=== PATIENT | female | born 1990 | race Caucasian/White ===

== ENCOUNTER 2019-05-21 12:19 | Emergency (ER) | payer MEDICAID, OTHER ==
[~2019-05-21] VITALS: Ht 160 cm; Wt 61.2 kg
[2019-05-21] MEDS ORDERED: KETOROLAC TROMETH 60MG/2ML VIAL IM ONE (15:15)
== END 2019-05-21 15:38 | disposition home or self-care (01) ==
LOC: ER 12:19
DX: M54.41 Lumbago with sciatica, right side (principal)
CPT/HCPCS: 81002; 81025; 96372; 99283; J1885